=== PATIENT | male | born 1950 | race Hispanic/Latino ===

== ENCOUNTER → 2017-05-14 | Outpatient (CLI) | payer MEDICARE ==
[~2017-05-14] MED LIST: CHOL500050 PO; FURO40SO PO; HUM10VIA SQ; IRON1CAP3 PO; LACT PO; LACT10SO9 PO; MONT10TA24 PO; PANT40TA25 PO; PROP20TA7 PO; PROP40TA7 PO; RIFA500P3 MC; RIFA550T PO; ROPI2TAB29 PO; VIT-7 PO; ZINC220T PO
[2017-05-14 13:33] LABS: INR 1.51 (0.85-1.15); PARTIAL THROMBOPLASTIN TIME 33.6 SEC (26.3-35.5); PROTHROMBIN TIME 15.7 SEC (9.6-11.6)
== END | disposition home or self-care (01) ==
LOC: RAH 12:10
PROVIDERS: ATTEND Internal Medicine Hematology & Oncology
DX: R18.8 Other ascites (principal); Z79.01 Long term (current) use of anticoagulants
CPT/HCPCS: 36415; 49083; 85610; 85730

== ENCOUNTER → 2017-05-28 | Outpatient (CLI) | payer MEDICARE | END | disposition home or self-care (01) | LOC: RAH 07:54 | PROVIDERS: ATTEND Internal Medicine Gastroenterology | DX: K74.60 Unspecified cirrhosis of liver (principal); K57.90 Diverticulosis of intestine, part unspecified, without perforation or abscess without bleeding; R18.8 Other ascites; R16.1 Splenomegaly, not elsewhere classified; R93.3 Abnormal findings on diagnostic imaging of other parts of digestive tract | CPT/HCPCS: 74176 ==

== ENCOUNTER → 2017-05-31 | Outpatient (CLI) | payer MEDICARE ==
[2017-05-31 08:54] LABS: INR 1.48 (0.85-1.15); PARTIAL THROMBOPLASTIN TIME 36.5 SEC (26.3-35.5); PROTHROMBIN TIME 15.4 SEC (9.6-11.6)
[2017-05-31 20:41] LABS: APPEARANCE BODY FLUID CLEAR (CLEAR); COLOR,BODY FLUID LT YELLOW (LT YELLOW); SPECIMENTYPE,BODY FLUID ASCITES; TOTAL VOLUME,BODY FLUID 4000 mL
[2017-05-31 20:51] LABS: BODY FLUID WBC 109 /cu. mm.
[2017-05-31 20:52] LABS: BODY FLUID RBC 1225 /cu. mm.
[2017-05-31 21:08] LABS: BF LYMPHOCYTE 29 %; BF MESOTHELIAL 16 %; BF MONOCYTE 29 %
== END | disposition home or self-care (01) ==
LOC: RAH 07:56
PROVIDERS: ATTEND Internal Medicine Hematology & Oncology
DX: R18.8 Other ascites (principal); Z79.01 Long term (current) use of anticoagulants
CPT/HCPCS: 36415; 49083; 85610; 85730; 87071; 87205; 88108; 89051

== ENCOUNTER 2017-06-10 05:12 | Inpatient (IN) | payer MEDICARE ==
[~2017-06-10] VITALS: Ht 165.1 cm; Wt 97.5 kg
[2017-06-10] VITALS: BP 116/60
[2017-06-10] MEDS ORDERED: CEFTRIAXONE SODIUM 2 GM VIAL ONE (05:29)
[2017-06-10] MEDS ORDERED: SODIUM CHLORIDE 0.9% 1000ML 0 ML IV ONE (05:29)
[2017-06-10] MEDS ORDERED: LACTULOSE 20 GM/30 ML UDCUP ONE (05:29)
[2017-06-10] MEDS ORDERED: ALBUMIN (HUMAN) 25% 100 ML IV ONE (05:30)
[2017-06-10 05:38] LABS: BASOPHILS % (AUTO) 0.4 % (0.0-5.0); EOSINOPHILS % (AUTO) 3.4 % (0.0-8.0); HEMATOCRIT 31.7 % (42-54); LYMPHOCYTES % (AUTO) 12.8 % (21.0-51.0); MEAN CORPUSCULAR HEMOGLOBIN 34.7 pg (27.0-33.0); MEAN CORPUSCULAR HGB CONC 35.1 g/dL (32.0-36.0); MEAN CORPUSCULAR VOLUME 98.9 fL (79-99); MONOCYTES % (AUTO) 11.3 % (3.0-13.0); NEUTROPHILS % (AUTO) 72.1 % (40.0-77.0); PLATELET COUNT (AUTO) 71 K/uL (130-400); RED CELL DISTRIBUTION WIDTH 16.8 % (11.0-15.5); WHITE BLOOD COUNT (AUTO) 6.9 K/uL (4.8-10.8)
[2017-06-10] MEDS ORDERED: SODIUM CHLORIDE 0.9% 1000ML 1,000 ML IV ONE (05:49)
[2017-06-10 05:50] LABS: INR 1.46 (0.85-1.15); PARTIAL THROMBOPLASTIN TIME 34.5 SEC (26.3-35.5); PROTHROMBIN TIME 15.2 SEC (9.6-11.6)
[2017-06-10 05:54] LABS: BILIRUBIN,TOTAL 5.5 mg/dL (0.2-1.0); CREATININE 3.6 mg/dL (0.5-1.5); TOTAL PROTEIN, SERUM 6.6 g/dL (6.0-8.3)
[2017-06-10 05:55] LABS: CREATINE KINASE, TOTAL 88 U/L (21-232); LIPASE 880 U/L (114-286)
[2017-06-10 06:02] LABS: POTASSIUM 2.4 mmol/L (3.5-5.1)
[2017-06-10] MEDS ORDERED: MAGNESIUM 2GM PREMIX 50ML 50 ML IV ONE (06:06)
[2017-06-10] MEDS ORDERED: POTASSIUM CHLORIDE 20MEQ/100ML 0 ML IV ONE (06:09)
[2017-06-10] MEDS ORDERED: POTASSIUM CHLORIDE 20MEQ/100ML 100 ML IV ONE ×2 (06:25→08:19)
[2017-06-10 06:32] LABS: APPEARANCE,URINE Clear (CLEAR); BILIRUBIN,URINE Negative (NEGATIVE); COLOR,URINE Yellow (YELLOW); GLUCOSE, URINE (UA) >=1000 mg/dL (NEGATIVE); KETONES,URINE Negative (NEGATIVE); LEUKOCYTE ESTERASE ,URINE Negative (NEGATIVE); NITRATE,URINE Negative (NEGATIVE); OCCULT BLOOD,URINE Negative (NEGATIVE); PH,URINE 5.5 (5.0-8.0); PROTEIN,URINE Negative (NEGATIVE)
[2017-06-10 07:02] LABS: BACTERIA,URINE Rare /HPF (None Seen); RBC,URINE 0-1 /HPF (0-1); SQUAMOUS EPITHELIAL CELL,UR Few /LPF (0-2); WBC,URINE 0-1 /HPF (0-1)
[2017-06-10 10:00] VITALS: BP 138/73
[2017-06-10] MEDS: POTASSIUM CHLORIDE 20 MEQ ERTAB PO SCH (10:36)
[2017-06-10] MEDS: LEVOFLOXACIN 500 MG TABLET PO SCH (10:37)
[2017-06-10 12:13] VITALS: BP 115/53
[2017-06-10] MEDS ORDERED: GLUCAGON 1MG KIT 1 MG ML IM PRN (13:00)
[2017-06-10] MEDS ORDERED: DEXTROSE 50%-WATER 50 ML DISP.SYRIN IV PRN (13:00)
[2017-06-10] MEDS: LACTULOSE 20 GM/30 ML UDCUP PO SCH ×2 (13:22→22:31)
[2017-06-10] MEDS: INSULIN HUMULIN R 100 UNIT/ML 3ML SQ SCH ×3 (13:22→21:50)
[2017-06-10 16:00] VITALS: BP 129/62
[2017-06-10] MEDS ORDERED: RIFA500P3 MC (18:52)
[2017-06-10] MEDS ORDERED: IRON1CAP3 PO (18:53)
[2017-06-10] MEDS ORDERED: FURO40SO PO (18:59)
[2017-06-10] MEDS ORDERED: PANT40TA25 PO (18:59)
[2017-06-10] MEDS ORDERED: MONT10TA24 PO (18:59)
[2017-06-10] MEDS ORDERED: VIT-7 PO (18:59)
[2017-06-10] MEDS ORDERED: PROP40TA7 PO (18:59)
[2017-06-10 20:00] VITALS: BP 126/72
[2017-06-11] VITALS (7 sets, daily range): BP systolic 111–139; BP diastolic 58–86
[2017-06-11 04:48] LABS: MEAN CORPUSCULAR HGB CONC 36.8 g/dL (32.0-36.0); MEAN CORPUSCULAR VOLUME 97.7 fL (79-99); PLATELET COUNT (AUTO) 57 K/uL (130-400); RED BLOOD CELL COUNT(AUTO) 2.66 MIL/uL (4.50-6.20); WHITE BLOOD COUNT (AUTO) 6.6 K/uL (4.8-10.8)
[2017-06-11 04:56] LABS: CREATININE 3.2 mg/dL (0.5-1.5)
[2017-06-11 05:03] LABS: POTASSIUM 2.5 mmol/L (3.5-5.1)
[2017-06-11 05:07] LABS: BAND NEUTROPHILS % (MANUAL) 2 % (0-2); BASOPHILS % (MANUAL) 1 % (0-2); EOSINOPHILS % (MANUAL) 6 % (1-6); LYMPHOCYTES % (MANUAL) 6 % (22-44); MAN.DIFF COMMENT-IMPRESSION MANUAL DIFFERENTIAL; MONOCYTES % (MANUAL) 1 % (2-9); SEGMENTED NEUTROPHILS % 84 % (40-70)
[2017-06-11 05:08] LABS: PLATELET MORPHOLOGY COMMENT MARKED DECREASED
[2017-06-11] MEDS: LACTULOSE 20 GM/30 ML UDCUP PO SCH ×3 (05:24→21:06)
[2017-06-11] MEDS: INSULIN HUMULIN R 100 UNIT/ML 3ML SQ SCH ×4 (07:27→21:52)
[2017-06-11] MEDS ORDERED: POTASSIUM CHLORIDE 20 MEQ ERTAB PO SCH (09:45)
[2017-06-11] MEDS: POTASSIUM CHLORIDE 20 MEQ ERTAB PO SCH (09:58)
[2017-06-11] MEDS: IRON POLYSACCHARIDES COMPLEX 150 MG CAPSULE PO SCH (09:59)
[2017-06-11] MEDS: LEVOFLOXACIN 500 MG TABLET PO SCH (09:59)
[2017-06-11] MEDS: RIFAXIMIN 550 MG TABLET PO SCH ×2 (10:05→21:06)
[2017-06-11] MEDS: FUROSEMIDE 40 MG TABLET PO SCH (21:07)
[2017-06-11] MEDS: PROPRANOLOL HCL 20 MG TAB PO SCH (21:07)
[2017-06-11] MEDS: MONTELUKAST SODIUM 10 MG TAB PO SCH (21:07)
[2017-06-12] VITALS (12 sets, daily range): BP systolic 103–145; BP diastolic 44–74
[2017-06-12 04:14] LABS: CREATININE 3.3 mg/dL (0.5-1.5); INR 1.66 (0.85-1.15); PARTIAL THROMBOPLASTIN TIME 39.4 SEC (26.3-35.5); POTASSIUM 3.2 mmol/L (3.5-5.1); PROTHROMBIN TIME 17.3 SEC (9.6-11.6)
[2017-06-12] MEDS: LACTULOSE 20 GM/30 ML UDCUP PO SCH ×3 (06:28→20:52)
[2017-06-12] MEDS: INSULIN HUMULIN R 100 UNIT/ML 3ML SQ SCH ×4 (06:50→22:36)
[2017-06-12] MEDS ORDERED: POTASSIUM CHLORIDE 20 MEQ ERTAB PO SCH (08:45)
[2017-06-12] MEDS: PANTOPRAZOLE SODIUM 40 MG TABLET.DR PO SCH (10:05)
[2017-06-12] MEDS: PROPRANOLOL HCL 20 MG TAB PO SCH ×2 (10:05→20:52)
[2017-06-12] MEDS: RIFAXIMIN 550 MG TABLET PO SCH ×2 (10:06→20:52)
[2017-06-12] MEDS: IRON POLYSACCHARIDES COMPLEX 150 MG CAPSULE PO SCH (10:06)
[2017-06-12] MEDS: LEVOFLOXACIN 500 MG TABLET PO SCH (10:06)
[2017-06-12] MEDS: FUROSEMIDE 40 MG TABLET PO SCH ×2 (10:06→20:52)
[2017-06-12] MEDS: MONTELUKAST SODIUM 10 MG TAB PO SCH (20:52)
[2017-06-13 03:00] VITALS: BP 112/59
[2017-06-13 04:08] LABS: CREATININE 3.1 mg/dL (0.5-1.5); PHOSPHORUS 1.6 mg/dL (2.5-4.9); POTASSIUM 3.5 mmol/L (3.5-5.1)
[2017-06-13 04:10] LABS: HEMATOCRIT 26.1 % (42-54); MEAN CORPUSCULAR HEMOGLOBIN 36.3 pg (27.0-33.0); MEAN CORPUSCULAR HGB CONC 36.6 g/dL (32.0-36.0); MEAN CORPUSCULAR VOLUME 99.3 fL (79-99); NUCLEATED RED BLOOD CELLS 0.1 % (0.0-0.19); PLATELET COUNT (AUTO) 53 K/uL (130-400); RED BLOOD CELL COUNT(AUTO) 2.63 MIL/uL (4.50-6.20); RED CELL DISTRIBUTION WIDTH 17.2 % (11.0-15.5); WHITE BLOOD COUNT (AUTO) 6.2 K/uL (4.8-10.8)
[2017-06-13 04:34] LABS: BAND NEUTROPHILS % (MANUAL) 8 % (0-2); BASOPHILS % (MANUAL) 2 % (0-2); EOSINOPHILS % (MANUAL) 2 % (1-6); LYMPHOCYTES % (MANUAL) 9 % (22-44); MAN.DIFF COMMENT-IMPRESSION MANUAL DIFFERENTIAL; MONOCYTES % (MANUAL) 7 % (2-9); PLATELET MORPHOLOGY COMMENT MARKED DEC; SEGMENTED NEUTROPHILS % 72 % (40-70)
[2017-06-13] MEDS: INSULIN HUMULIN R 100 UNIT/ML 3ML SQ SCH (06:28)
[2017-06-13] MEDS: LACTULOSE 20 GM/30 ML UDCUP PO SCH (06:36)
[2017-06-13] MEDS: IRON POLYSACCHARIDES COMPLEX 150 MG CAPSULE PO SCH (07:43)
[2017-06-13] MEDS: RIFAXIMIN 550 MG TABLET PO SCH (07:44)
[2017-06-13] MEDS: FUROSEMIDE 40 MG TABLET PO SCH (07:44)
[2017-06-13] MEDS: PANTOPRAZOLE SODIUM 40 MG TABLET.DR PO SCH (07:44)
[2017-06-13] MEDS: PROPRANOLOL HCL 20 MG TAB PO SCH (07:44)
[2017-06-13] MEDS: LEVOFLOXACIN 500 MG TABLET PO SCH (07:44)
[2017-06-13 08:00] VITALS: BP 115/54
[2017-06-13] MEDS ORDERED: LACT PO (09:04)
[2017-10-08] MEDS ORDERED: CHOL500050 PO (10:53)
[2017-10-08] MEDS ORDERED: PROP20TA7 PO (10:55)
== END 2017-06-13 10:30 | disposition home or self-care (01) | DRG 442 ==
LOC: EDH 05:12 → EDHIP 08:20 → 3CH 09:31
PROVIDERS: ADMIT Internal Medicine Nephrology; ATTEND Internal Medicine Nephrology
PROC: 0W9G3ZZ Drainage of Peritoneal Cavity, Percutaneous Approach (ICD-10-PCS; principal; 2017-06-12)
DX: K72.90 Hepatic failure, unspecified without coma (principal); N17.9 Acute kidney failure, unspecified; E44.1 Mild protein-calorie malnutrition; E11.22 Type 2 diabetes mellitus with diabetic chronic kidney disease; N18.4 Chronic kidney disease, stage 4 (severe); I12.9 Hypertensive chronic kidney disease with stage 1 through stage 4 chronic kidney disease, or unspecified chronic kidney disease; E78.00 Pure hypercholesterolemia, unspecified; Z91.19 Patient's noncompliance with other medical treatment and regimen; Z88.8 Allergy status to other drugs, medicaments and biological substances; Z82.49 Family history of ischemic heart disease and other diseases of the circulatory system
CPT/HCPCS: 36415; 49083; 71045; 80048; 80053; 81001; 82140; 82550; 82948; 83605; 83690; 84100; 84484; 85025; 85610; 85730; 87040; 87804; 93005; 99291; J0696; J1815; J3475; J3480; J7030; P9046

== ENCOUNTER 2017-06-15 14:44 | Observation (INO) | payer MEDICARE ==
[~2017-06-15] VITALS: Ht 165.1 cm; Wt 96.4 kg
[~2017-06-15 14:44] MED LIST changes: -CHOL500050 PO; -HUM10VIA SQ; -LACT10SO9 PO; -PROP20TA7 PO; -RIFA550T PO; -ROPI2TAB29 PO; -ZINC220T PO
[2017-06-15 15:36] LABS: BASOPHILS % (AUTO) 0.3 % (0.0-5.0); EOSINOPHILS % (AUTO) 2.5 % (0.0-8.0); HEMATOCRIT 28.3 % (42-54); LYMPHOCYTES % (AUTO) 8.4 % (21.0-51.0); MEAN CORPUSCULAR HEMOGLOBIN 35.9 pg (27.0-33.0); MEAN CORPUSCULAR HGB CONC 35.2 g/dL (32.0-36.0); MEAN CORPUSCULAR VOLUME 101.9 fL (79-99); MONOCYTES % (AUTO) 9.3 % (3.0-13.0); NEUTROPHILS % (AUTO) 79.5 % (40.0-77.0); NUCLEATED RED BLOOD CELLS 0.1 % (0.0-0.19); PLATELET COUNT (AUTO) 57 K/uL (130-400); RED BLOOD CELL COUNT(AUTO) 2.78 MIL/uL (4.50-6.20); RED CELL DISTRIBUTION WIDTH 17.6 % (11.0-15.5); WHITE BLOOD COUNT (AUTO) 7.9 K/uL (4.8-10.8)
[2017-06-15] MEDS ORDERED: INSULIN HUMULIN R 100 UNIT/ML 3ML ONE ×2 (15:48→21:03)
[2017-06-15 15:55] LABS: INR 1.56 (0.85-1.15); PARTIAL THROMBOPLASTIN TIME 38.7 SEC (26.3-35.5); PROTHROMBIN TIME 16.2 SEC (9.6-11.6)
[2017-06-15 16:11] LABS: BILIRUBIN,TOTAL 4.6 mg/dL (0.2-1.0); CREATINE KINASE MB 0.8 ng/mL (0.5-3.6); CREATININE 3.4 mg/dL (0.5-1.5); POTASSIUM 3.6 mmol/L (3.5-5.1); TOTAL PROTEIN, SERUM 6.3 g/dL (6.0-8.3)
[2017-06-15 22:12] LABS: APPEARANCE,URINE Clear (CLEAR); BILIRUBIN,URINE Negative (NEGATIVE); COLOR,URINE Dark Yellow (YELLOW); GLUCOSE, URINE (UA) >=1000 mg/dL (NEGATIVE); KETONES,URINE Negative (NEGATIVE); LEUKOCYTE ESTERASE ,URINE Negative (NEGATIVE); NITRATE,URINE Negative (NEGATIVE); OCCULT BLOOD,URINE Negative (NEGATIVE); PH,URINE 5.5 (5.0-8.0); PROTEIN,URINE Negative (NEGATIVE); UROBILINOGEN,URINE 0.2 mg/dL (0.2-1.0)
[2017-06-15 22:59] LABS: BACTERIA,URINE Few /HPF (None Seen); CALCIUM OXALATE CRYSTALS,UR Moderate /LPF (None Seen); RBC,URINE 0-1 /HPF (0-1); SQUAMOUS EPITHELIAL CELL,UR Few /LPF (0-2); YEAST,URINE BUDDING Moderate /HPF (None Seen)
[2017-06-15 23:15] VITALS: BP 113/67
[2017-06-15] MEDS ORDERED: DEXTROSE 50%-WATER 50 ML DISP.SYRIN IV PRN (23:30)
[2017-06-15] MEDS ORDERED: GLUCAGON 1MG KIT 1 MG ML IM PRN (23:30)
[2017-06-16 03:00] VITALS: BP 98/57
[2017-06-16] MEDS ORDERED: INSULIN HUMULIN R 100 UNIT/ML 3ML ONE (05:58)
[2017-06-16] MEDS: LACTULOSE 20 GM/30 ML UDCUP PO SCH ×3 (05:59→20:27)
[2017-06-16 06:15] LABS: HEMATOCRIT 24.4 % (42-54); MEAN CORPUSCULAR HEMOGLOBIN 34.7 pg (27.0-33.0); MEAN CORPUSCULAR HGB CONC 34.9 g/dL (32.0-36.0); MEAN CORPUSCULAR VOLUME 99.6 fL (79-99); PLATELET COUNT (AUTO) 48 K/uL (130-400); RED BLOOD CELL COUNT(AUTO) 2.45 MIL/uL (4.50-6.20); RED CELL DISTRIBUTION WIDTH 16.8 % (11.0-15.5); WHITE BLOOD COUNT (AUTO) 6.2 K/uL (4.8-10.8)
[2017-06-16 06:20] LABS: CREATININE 3.3 mg/dL (0.5-1.5); POTASSIUM 3.2 mmol/L (3.5-5.1)
[2017-06-16] MEDS: INSULIN R PO SS1 SQ SCH ×4 (06:30→21:52)
[2017-06-16 07:00] VITALS: BP 99/58
[2017-06-16] MEDS: PROPRANOLOL HCL 20 MG TAB PO SCH ×3 (09:00→20:28)
[2017-06-16] MEDS: FOLIC ACID/VITAMIN B COMP W-C 1 MG CAPSULE PO SCH (09:17)
[2017-06-16] MEDS: FUROSEMIDE 40 MG TABLET PO SCH ×2 (09:17→20:27)
[2017-06-16] MEDS: RIFAXIMIN 550 MG TABLET PO SCH ×2 (09:17→20:27)
[2017-06-16] MEDS: PANTOPRAZOLE SODIUM 40 MG TABLET.DR PO SCH (09:17)
[2017-06-16] MEDS: FERROUS SULFATE 325 MG TABLET.DR PO SCH (09:17)
[2017-06-16] MEDS ORDERED: EPOETIN ALFA 10,000 UNIT/ML VIAL SQ SCH (10:45)
[2017-06-16 11:00] VITALS: BP 100/56
[2017-06-16] MEDS: POTASSIUM CHLORIDE 20 MEQ ERTAB PO SCH (11:30)
[2017-06-16] MEDS ORDERED: COMPOUND IV MISC 1 EACH IVSOLN MISC PRN (11:45)
[2017-06-16] MEDS: MIDODRINE HCL 5 MG TABLET PO SCH ×2 (13:46→20:27)
[2017-06-16 15:00] VITALS: BP 102/47
[2017-06-16] MEDS ORDERED: MONTELUKAST SODIUM 10 MG TAB PO SCH (21:00)
[2017-06-16] MEDS: INSULIN HUMULIN 70/30 100 UNIT/ML 3ML SQ SCH (21:00)
[2017-06-16 21:07] VITALS: BP 128/65
[2017-06-17 00:23] VITALS: BP 113/63
[2017-06-17 04:51] VITALS: BP 124/72
[2017-06-17] MEDS: LACTULOSE 20 GM/30 ML UDCUP PO SCH (06:00)
[2017-06-17 06:24] LABS: HEMATOCRIT 27.1 % (42-54); MEAN CORPUSCULAR HEMOGLOBIN 36.4 pg (27.0-33.0); MEAN CORPUSCULAR HGB CONC 36.2 g/dL (32.0-36.0); MEAN CORPUSCULAR VOLUME 100.4 fL (79-99); PLATELET COUNT (AUTO) 65 K/uL (130-400); RED CELL DISTRIBUTION WIDTH 17.2 % (11.0-15.5); WHITE BLOOD COUNT (AUTO) 7.7 K/uL (4.8-10.8)
[2017-06-17 06:30] LABS: CREATININE 3.5 mg/dL (0.5-1.5); POTASSIUM 3.3 mmol/L (3.5-5.1)
[2017-06-17] MEDS: INSULIN R PO SS1 SQ SCH ×2 (06:38→11:23)
[2017-06-17 07:49] LABS: BAND NEUTROPHILS % (MANUAL) 1 % (0-2); BASOPHILS % (MANUAL) 1 % (0-2); EOSINOPHILS % (MANUAL) 3 % (1-6); LYMPHOCYTES % (MANUAL) 8 % (22-44); MONOCYTES % (MANUAL) 2 % (2-9); SEGMENTED NEUTROPHILS % 85 % (40-70)
[2017-06-17 07:53] LABS: MAN.DIFF COMMENT-IMPRESSION MANUAL DIFFERENTIAL; PLATELET MORPHOLOGY COMMENT DECREASED
[2017-06-17 08:18] VITALS: BP 119/56
[2017-06-17] MEDS: FERROUS SULFATE 325 MG TABLET.DR PO SCH (08:43)
[2017-06-17] MEDS: PANTOPRAZOLE SODIUM 40 MG TABLET.DR PO SCH (08:44)
[2017-06-17] MEDS: FOLIC ACID/VITAMIN B COMP W-C 1 MG CAPSULE PO SCH (08:44)
[2017-06-17] MEDS: FUROSEMIDE 40 MG TABLET PO SCH (08:44)
[2017-06-17] MEDS: RIFAXIMIN 550 MG TABLET PO SCH (08:44)
[2017-06-17] MEDS: MIDODRINE HCL 5 MG TABLET PO SCH (08:44)
[2017-06-17] MEDS: PROPRANOLOL HCL 20 MG TAB PO SCH (08:44)
[2017-06-17] MEDS: INSULIN HUMULIN 70/30 100 UNIT/ML 3ML SQ SCH (09:00)
[2017-06-17] MEDS ORDERED: IRON SUCROSE COMPLEX 100 MG in SODIUM CHLORIDE 0.9% 50 ML IV SCH (09:00)
[2017-06-17] MEDS ORDERED: HUM10VIA SQ (09:56)
[2017-06-17] MEDS ORDERED: POTASSIUM CHLORIDE 20 MEQ ERTAB PO SCH (10:00)
[2017-06-17] MEDS: POTASSIUM CHLORIDE 20 MEQ ERTAB PO SCH (11:15)
[2017-06-17 11:18] VITALS: BP 119/58
[2017-10-08] MEDS ORDERED: CHOL500050 PO (10:53)
[2017-10-08] MEDS ORDERED: PROP20TA7 PO (10:55)
== END 2017-06-17 12:00 | disposition home or self-care (01) ==
LOC: EDH 14:44 → EDHIP 19:58 → 4AH 22:58
PROVIDERS: ADMIT Internal Medicine Nephrology; ATTEND Internal Medicine Nephrology
DX: E11.65 Type 2 diabetes mellitus with hyperglycemia (principal); R53.81 Other malaise; E78.00 Pure hypercholesterolemia, unspecified; E87.8 Other disorders of electrolyte and fluid balance, not elsewhere classified; I10 Essential (primary) hypertension; N19 Unspecified kidney failure; K74.60 Unspecified cirrhosis of liver; G93.40 Encephalopathy, unspecified; D64.9 Anemia, unspecified; Z88.8 Allergy status to other drugs, medicaments and biological substances; Z82.49 Family history of ischemic heart disease and other diseases of the circulatory system
CPT/HCPCS: 36415 ×3; 80048 ×2; 80053; 81001; 82009; 82140; 82550; 82553; 82948 ×9; 84484; 85025 ×2; 85027; 85610; 85730; 93005; 96365; 96372 ×2; 99285; G0378 ×40; J0885; J1756; J1815 ×7; 96361; 96368; 96375; 96376

== ENCOUNTER → 2017-07-02 | Outpatient (CLI) | payer MEDICARE ==
[~2017-07-02] MED LIST changes: +ALBUMIN (HUMAN) 25% 200 ML IV ONE; +CHOL500050 PO; +HUM10VIA SQ; +LACT10SO9 PO; +PROP20TA7 PO; +RIFA550T PO; +ROPI2TAB29 PO; +ZINC220T PO
[2017-07-02 10:41] LABS: BASOPHILS % (AUTO) 0.4 % (0.0-5.0); EOSINOPHILS % (AUTO) 4.3 % (0.0-8.0); HEMATOCRIT 28.8 % (42-54); LYMPHOCYTES % (AUTO) 17.9 % (21.0-51.0); MEAN CORPUSCULAR HEMOGLOBIN 36.2 pg (27.0-33.0); MEAN CORPUSCULAR HGB CONC 35.7 g/dL (32.0-36.0); MEAN CORPUSCULAR VOLUME 101.4 fL (79-99); NEUTROPHILS % (AUTO) 65.4 % (40.0-77.0); PLATELET COUNT (AUTO) 77 K/uL (130-400); RED BLOOD CELL COUNT(AUTO) 2.84 MIL/uL (4.50-6.20); WHITE BLOOD COUNT (AUTO) 4.6 K/uL (4.8-10.8)
[2017-07-02 10:52] LABS: ALBUMIN 2.1 g/dL (3.5-5.0); BILIRUBIN,TOTAL 4.3 mg/dL (0.2-1.0); CREATININE 3.4 mg/dL (0.5-1.5); POTASSIUM 3.3 mmol/L (3.5-5.1); TOTAL PROTEIN, SERUM 6.7 g/dL (6.0-8.3)
[2017-07-02 10:56] LABS: INR 1.49 (0.85-1.15); PROTHROMBIN TIME 15.5 SEC (9.6-11.6)
[2017-07-02 14:33] LABS: APPEARANCE BODY FLUID SLIGHTLY CLOUDY (CLEAR); COLOR,BODY FLUID YELLOW (LT YELLOW); SPECIMENTYPE,BODY FLUID ASCITES; TOTAL VOLUME,BODY FLUID 4500 mL
[2017-07-02 14:34] LABS: BODY FLUID WBC 39 /cu. mm.
[2017-07-02 14:35] LABS: BODY FLUID RBC 1275 /cu. mm.
[2017-07-02 14:39] LABS: BF LYMPHOCYTE 33 %; BF MESOTHELIAL 29 %
== END | disposition home or self-care (01) ==
LOC: RAH 10:01
PROVIDERS: ATTEND Internal Medicine Gastroenterology
DX: R18.8 Other ascites (principal); J90 Pleural effusion, not elsewhere classified; K74.60 Unspecified cirrhosis of liver
CPT/HCPCS: 36415; 49083; 71046; 80053; 82105; 82140; 85025; 85610; 87071; 87205; 88108; 88305; 89051; P9046

== ENCOUNTER → 2017-07-08 | Outpatient (CLI) | payer MEDICARE ==
[~2017-07-08] MED LIST changes: -ALBUMIN (HUMAN) 25% 200 ML IV ONE
[2017-07-08 08:49] LABS: BASOPHILS % (AUTO) 1.3 % (0.0-5.0); EOSINOPHILS % (AUTO) 4.9 % (0.0-8.0); HEMATOCRIT 27.3 % (42-54); LYMPHOCYTES % (AUTO) 20.9 % (21.0-51.0); MEAN CORPUSCULAR HEMOGLOBIN 35.5 pg (27.0-33.0); MEAN CORPUSCULAR HGB CONC 35.3 g/dL (32.0-36.0); MEAN CORPUSCULAR VOLUME 100.6 fL (79-99); MONOCYTES % (AUTO) 15.9 % (3.0-13.0); NUCLEATED RED BLOOD CELLS 0.2 % (0.0-0.19); PLATELET COUNT (AUTO) 58 K/uL (130-400); RED BLOOD CELL COUNT(AUTO) 2.71 MIL/uL (4.50-6.20); RED CELL DISTRIBUTION WIDTH 18.2 % (11.0-15.5); WHITE BLOOD COUNT (AUTO) 4.5 K/uL (4.8-10.8)
[2017-07-08 09:02] LABS: INR 1.58 (0.85-1.15); PROTHROMBIN TIME 16.4 SEC (9.6-11.6)
[2017-07-08 09:04] LABS: ALBUMIN 2.4 g/dL (3.5-5.0); CREATININE 3.2 mg/dL (0.5-1.5); POTASSIUM 4.2 mmol/L (3.5-5.1); TOTAL PROTEIN, SERUM 6.4 g/dL (6.0-8.3)
[2017-07-08 11:17] LABS: APPEARANCE BODY FLUID CLEAR (CLEAR); COLOR,BODY FLUID YELLOW (LT YELLOW); SPECIMENTYPE,BODY FLUID ASCITES
[2017-07-08 11:18] LABS: BODY FLUID RBC 1319 /cu. mm.; BODY FLUID WBC 105 /cu. mm.
[2017-07-08 11:26] LABS: TOTAL VOLUME,BODY FLUID 1800 mL
[2017-07-08 11:31] LABS: BF LYMPHOCYTE 44 %; BF MESOTHELIAL 37 %; BF MONOCYTE 10 %; BF OTHER CELLS 2
== END | disposition home or self-care (01) ==
LOC: RAH 07:17
PROVIDERS: ATTEND Internal Medicine Gastroenterology
DX: R18.8 Other ascites (principal)
CPT/HCPCS: 36415; 49083; 80053; 85025; 85610; 87071; 87205; 88108; 88305; 89051

== ENCOUNTER → 2017-07-09 | Outpatient (CLI) | payer MEDICARE | END | disposition home or self-care (01) | LOC: RAH 07:38 | PROVIDERS: ATTEND Internal Medicine Gastroenterology | DX: K80.20 Calculus of gallbladder without cholecystitis without obstruction (principal); R18.8 Other ascites; I12.9 Hypertensive chronic kidney disease with stage 1 through stage 4 chronic kidney disease, or unspecified chronic kidney disease; E11.22 Type 2 diabetes mellitus with diabetic chronic kidney disease; N18.4 Chronic kidney disease, stage 4 (severe); E78.00 Pure hypercholesterolemia, unspecified | CPT/HCPCS: 76700; 93975 ==

== ENCOUNTER → 2017-07-29 | Outpatient (CLI) | payer MEDICARE ==
[~2017-07-29] MED LIST changes: +ALBUMIN (HUMAN) 25% 200 ML IV SCH; +LIDOCAINE HCL 1% 20 ML VIAL ONE
[2017-07-29 16:00] LABS: SPECIMENTYPE,BODY FLUID ASCITES
[2017-07-29 16:01] LABS: APPEARANCE BODY FLUID SLIGHTLY CLOUDY (CLEAR); COLOR,BODY FLUID LT YELLOW (LT YELLOW); TOTAL VOLUME,BODY FLUID 3000 mL
[2017-07-29 16:20] LABS: BODY FLUID RBC 1550 /cu. mm.; BODY FLUID WBC 65 /cu. mm.
[2017-07-29 16:34] LABS: BF LYMPHOCYTE 50 %; BF MONOCYTE 30 %; BF OTHER CELLS 2
== END | disposition home or self-care (01) ==
LOC: RAH 10:04
PROVIDERS: ATTEND Internal Medicine Gastroenterology
DX: R18.8 Other ascites (principal)
CPT/HCPCS: 49083; 87071; 87205; 88108; 89051; P9046

== ENCOUNTER 2017-08-21 00:11 | Inpatient (IN) | payer MEDICARE ==
[~2017-08-21] VITALS: Ht 165.1 cm; Wt 87.4 kg
[~2017-08-21 00:11] MED LIST changes: -ALBUMIN (HUMAN) 25% 200 ML IV SCH; -CHOL500050 PO; -LACT10SO9 PO; -LIDOCAINE HCL 1% 20 ML VIAL ONE; -PROP20TA7 PO; -RIFA550T PO; -ROPI2TAB29 PO; -ZINC220T PO
[2017-08-21 00:33] LABS: BASOPHILS % (AUTO) 0.6 % (0.0-5.0); EOSINOPHILS % (AUTO) 2.7 % (0.0-8.0); LYMPHOCYTES % (AUTO) 18.1 % (21.0-51.0); MEAN CORPUSCULAR HEMOGLOBIN 34.4 pg (27.0-33.0); MEAN CORPUSCULAR HGB CONC 34.6 g/dL (32.0-36.0); MEAN CORPUSCULAR VOLUME 99.4 fL (79-99); MONOCYTES % (AUTO) 12.5 % (3.0-13.0); NEUTROPHILS % (AUTO) 66.1 % (40.0-77.0); NUCLEATED RED BLOOD CELLS 0.1 % (0.0-0.19); PLATELET COUNT (AUTO) 48 K/uL (130-400); RED BLOOD CELL COUNT(AUTO) 2.62 MIL/uL (4.50-6.20); WHITE BLOOD COUNT (AUTO) 5.6 K/uL (4.8-10.8)
[2017-08-21 00:40] LABS: CREATININE 2.6 mg/dL (0.5-1.5)
[2017-08-21 00:45] LABS: ALBUMIN 2.7 g/dL (3.5-5.0); BILIRUBIN,TOTAL 5.2 mg/dL (0.2-1.0); TOTAL PROTEIN, SERUM 6.5 g/dL (6.0-8.3)
[2017-08-21 01:10] LABS: INR 1.42 (0.85-1.15); PARTIAL THROMBOPLASTIN TIME 36.6 SEC (26.3-35.5); PROTHROMBIN TIME 14.8 SEC (9.6-11.6)
[2017-08-21] MEDS ORDERED: LACTULOSE 20 GM/30 ML UDCUP ONE (01:12)
[2017-08-21] MEDS ORDERED: GLUCAGON 1MG KIT 1 MG ML IM PRN (03:45)
[2017-08-21] MEDS ORDERED: DEXTROSE 50%-WATER 50 ML DISP.SYRIN IV PRN (03:45)
[2017-08-21 04:00] VITALS: BP 170/76
[2017-08-21 05:36] LABS: HEMATOCRIT 24.7 % (42-54); MEAN CORPUSCULAR HEMOGLOBIN 35.2 pg (27.0-33.0); MEAN CORPUSCULAR HGB CONC 35.7 g/dL (32.0-36.0); MEAN CORPUSCULAR VOLUME 98.6 fL (79-99); PLATELET COUNT (AUTO) 44 K/uL (130-400); WHITE BLOOD COUNT (AUTO) 5.1 K/uL (4.8-10.8)
[2017-08-21 05:52] LABS: ALBUMIN 2.4 g/dL (3.5-5.0); BILIRUBIN,TOTAL 4.8 mg/dL (0.2-1.0); CREATININE 2.5 mg/dL (0.5-1.5); POTASSIUM 3.9 mmol/L (3.5-5.1); TOTAL PROTEIN, SERUM 5.9 g/dL (6.0-8.3)
[2017-08-21] MEDS ORDERED: LACTULOSE 20 GM/30 ML UDCUP PO SCH (06:00)
[2017-08-21] MEDS: SODIUM CHLORIDE 0.9% 1000ML 1,000 ML IV SCH (06:41)
[2017-08-21] MEDS ORDERED: LACT10SO9 PO (06:59)
[2017-08-21 08:00] VITALS: BP 142/79
[2017-08-21] MEDS ORDERED: ROPI2TAB29 PO (08:10)
[2017-08-21] MEDS ORDERED: RIFA550T PO (08:12)
[2017-08-21] MEDS ORDERED: ZINC220T PO (08:12)
[2017-08-21] MEDS: FAMOTIDINE 20MG TAB 20 MG TAB PO SCH (09:33)
[2017-08-21] MEDS: LACTULOSE 20 GM/30 ML UDCUP PO SCH ×4 (09:33→22:14)
[2017-08-21 11:56] VITALS: BP 150/85
[2017-08-21 16:00] VITALS: BP 180/76
[2017-08-21 19:00] VITALS: BP 161/73
[2017-08-21] MEDS: FUROSEMIDE 40 MG TABLET PO SCH (21:00)
[2017-08-21] MEDS: INSULIN HUMULIN 70/30 100 UNIT/ML 3ML SQ SCH (21:00)
[2017-08-21] MEDS: ZINC SULFATE 220 MG PO SCH (21:00)
[2017-08-21] MEDS ORDERED: RIFAXIMIN 200 MG TABLET PO SCH (21:00)
[2017-08-21] MEDS: MONTELUKAST SODIUM 10 MG TAB PO SCH (22:13)
[2017-08-21] MEDS: ROPINIROLE HCL 1 MG TABLET PO SCH (22:13)
[2017-08-22] VITALS: BP 149/72
[2017-08-22 04:00] VITALS: BP 129/56
[2017-08-22] MEDS: LACTULOSE 20 GM/30 ML UDCUP PO SCH ×6 (04:20→21:22)
[2017-08-22] MEDS: FERREX PO SCH (09:00)
[2017-08-22 09:18] VITALS: BP 140/82
[2017-08-22] MEDS: INSULIN HUMULIN 70/30 100 UNIT/ML 3ML SQ SCH ×2 (09:51→21:33)
[2017-08-22] MEDS: RIFAXIMIN 550 MG TABLET PO SCH ×2 (09:51→21:23)
[2017-08-22] MEDS: PANTOPRAZOLE SODIUM 40 MG TABLET.DR PO SCH (09:52)
[2017-08-22] MEDS: FAMOTIDINE 20MG TAB 20 MG TAB PO SCH (09:52)
[2017-08-22] MEDS: FUROSEMIDE 40 MG TABLET PO SCH ×2 (09:52→21:23)
[2017-08-22] MEDS: SODIUM CHLORIDE 0.9% 1000ML 1,000 ML IV SCH ×2 (09:58→20:00)
[2017-08-22 11:35] VITALS: BP 148/83
[2017-08-22 15:56] VITALS: BP 152/78
[2017-08-22] MEDS: INSULIN HUMULIN R 100 UNIT/ML 3ML SQ SCH ×2 (17:22→21:00)
[2017-08-22 19:39] VITALS: BP 157/89
[2017-08-22] MEDS: ZINC SULFATE 220 MG PO SCH (21:00)
[2017-08-22] MEDS: MONTELUKAST SODIUM 10 MG TAB PO SCH (21:23)
[2017-08-22] MEDS: ROPINIROLE HCL 1 MG TABLET PO SCH (21:23)
[2017-08-23] VITALS: BP 140/89
[2017-08-23] MEDS: LACTULOSE 20 GM/30 ML UDCUP PO SCH ×4 (00:45→12:00)
[2017-08-23 04:36] VITALS: BP 146/79
[2017-08-23 07:30] VITALS: BP 156/76
[2017-08-23] MEDS: INSULIN HUMULIN R 100 UNIT/ML 3ML SQ SCH ×2 (07:30→11:30)
[2017-08-23] MEDS: INSULIN HUMULIN 70/30 100 UNIT/ML 3ML SQ SCH (09:00)
[2017-08-23] MEDS: FERREX PO SCH (09:00)
[2017-08-23] MEDS ORDERED: LACT10SO9 PO (09:47)
[2017-08-23] MEDS: PANTOPRAZOLE SODIUM 40 MG TABLET.DR PO SCH (09:50)
[2017-08-23] MEDS: FAMOTIDINE 20MG TAB 20 MG TAB PO SCH (09:50)
[2017-08-23] MEDS: RIFAXIMIN 550 MG TABLET PO SCH (09:50)
[2017-08-23] MEDS: FUROSEMIDE 40 MG TABLET PO SCH (09:50)
[2017-08-23 11:00] VITALS: BP 152/87
[2017-10-08] MEDS ORDERED: CHOL500050 PO (10:53)
[2017-10-08] MEDS ORDERED: PROP20TA7 PO (10:55)
== END 2017-08-23 12:10 | disposition home or self-care (01) | DRG 442 ==
LOC: EDH 00:11 → EDHIP 02:56 → OBSVTOIN 02:56 → 3DH 03:28
PROVIDERS: ADMIT Internal Medicine Nephrology; ATTEND Internal Medicine Nephrology
DX: K72.90 Hepatic failure, unspecified without coma (principal); R18.8 Other ascites; D69.6 Thrombocytopenia, unspecified; D63.8 Anemia in other chronic diseases classified elsewhere; E11.9 Type 2 diabetes mellitus without complications; I10 Essential (primary) hypertension; I44.0 Atrioventricular block, first degree; K74.60 Unspecified cirrhosis of liver; M19.90 Unspecified osteoarthritis, unspecified site; Z79.4 Long term (current) use of insulin; Z80.3 Family history of malignant neoplasm of breast; Z80.8 Family history of malignant neoplasm of other organs or systems; Z88.6 Allergy status to analgesic agent
CPT/HCPCS: 36415; 70450; 74176; 80053; 82140; 82550; 82948; 84484; 85025; 85027; 85610; 85730; 93005; 99291; J1815; J7030

== ENCOUNTER → 2017-09-05 | Outpatient (CLI) | payer MEDICARE ==
[~2017-09-05] MED LIST changes: +CHOL500050 PO; +FURO40TA5 PO; -LACT PO; +LACT10SO9 PO; +PROP20TA7 PO; -RIFA500P3 MC; +RIFA550T PO; +ROPI2TAB29 PO; -VIT-7 PO; +ZINC220T PO
[2017-09-05 08:49] LABS: INR 1.61 (0.85-1.15); PARTIAL THROMBOPLASTIN TIME 46.5 SEC (26.3-35.5); PROTHROMBIN TIME 16.7 SEC (9.6-11.6)
[2017-09-05 08:50] LABS: TOTAL PROTEIN, SERUM 6.6 g/dL (6.0-8.3)
[2017-09-05 10:16] LABS: APPEARANCE BODY FLUID CLOUDY (CLEAR); BODY FLUID WBC 317 /cu. mm.; COLOR,BODY FLUID ORANGE (LT YELLOW); SPECIMENTYPE,BODY FLUID PLEURAL; TOTAL VOLUME,BODY FLUID 1500 mL
[2017-09-05 10:17] LABS: BODY FLUID RBC 16819 /cu. mm.
[2017-09-05 10:23] LABS: BF LYMPHOCYTE 27 %; BF MESOTHELIAL 69 %; BF MONOCYTE 2 %
== END | disposition home or self-care (01) ==
LOC: RAH 07:15
PROVIDERS: ATTEND Internal Medicine
DX: J90 Pleural effusion, not elsewhere classified (principal)
CPT/HCPCS: 32555; 36415; 71045; 82945; 83615; 83986; 84155; 84157; 85610; 85730; 87071; 87103; 87116; 87205; 87206; 88108; 88305; 89051

== ENCOUNTER → 2017-09-25 | Outpatient (CLI) | payer MEDICARE ==
[~2017-09-25] MED LIST changes: +ALBUMIN (HUMAN) 25% 200 ML IV SCH; +LIDOCAINE HCL 1% 10 ML VIAL ONE
[2017-09-25 10:25] LABS: INR 1.42 (0.85-1.15); PROTHROMBIN TIME 14.8 SEC (9.6-11.6)
[2017-09-25 10:30] LABS: ALBUMIN 2.8 g/dL (3.5-5.0); BILIRUBIN,TOTAL 4.4 mg/dL (0.2-1.0); CREATININE 2.7 mg/dL (0.5-1.5); POTASSIUM 4.4 mmol/L (3.5-5.1); TOTAL PROTEIN, SERUM 6.4 g/dL (6.0-8.3)
== END | disposition home or self-care (01) ==
LOC: RAH 09:53
PROVIDERS: ATTEND Internal Medicine Gastroenterology
DX: R18.8 Other ascites (principal); Z53.9 Procedure and treatment not carried out, unspecified reason
CPT/HCPCS: 36415; 76705; 80053; 85610; J3490; P9046

== ENCOUNTER 2017-10-08 09:58 | Day surgery (SDC) | payer MEDICARE ==
[~2017-10-08] VITALS: Ht 165.1 cm; Wt 94.1 kg
[~2017-10-08 09:58] MED LIST changes: -ALBUMIN (HUMAN) 25% 200 ML IV SCH; -CHOL500050 PO; -FURO40TA5 PO; -LIDOCAINE HCL 1% 10 ML VIAL ONE; -PROP20TA7 PO; -PROP40TA7 PO; +SODIUM CHLORIDE 0.9% 1000ML 1,000 ML IV ONE
[2017-10-08 10:23] VITALS: BP 168/71
[2017-10-08] MEDS ORDERED: CHOL500050 PO ×2 (10:53)
[2017-10-08] MEDS ORDERED: PROP20TA7 PO ×2 (10:55)
[2017-10-08 11:55] VITALS: BP 141/67
[2017-10-18] MEDS ORDERED: PROP40TA7 PO (17:52)
[2017-10-18] MEDS ORDERED: RIFA550T PO (17:52)
[2017-10-18] MEDS ORDERED: FURO40TA5 PO (17:52)
== END 2017-10-08 12:43 | disposition home or self-care (01) ==
LOC: DAH 09:58
PROVIDERS: ATTEND Internal Medicine Gastroenterology
DX: I85.00 Esophageal varices without bleeding (principal); K76.6 Portal hypertension; K31.89 Other diseases of stomach and duodenum; R00.1 Bradycardia, unspecified; Z79.899 Other long term (current) drug therapy; E11.9 Type 2 diabetes mellitus without complications; E78.5 Hyperlipidemia, unspecified; I10 Essential (primary) hypertension; Z68.32 Body mass index [BMI] 32.0-32.9, adult
CPT/HCPCS: 43244; 93005; A4606; J7030

== ENCOUNTER → 2017-10-09 | Outpatient (CLI) | payer MEDICARE ==
[~2017-10-09] MED LIST changes: +ALBUMIN (HUMAN) 25% 200 ML IV SCH; +CHOL500050 PO; +FURO40TA5 PO; +LIDOCAINE HCL 1% 20 ML VIAL ONE; +PROP20TA7 PO; +PROP40TA7 PO; -SODIUM CHLORIDE 0.9% 1000ML 1,000 ML IV ONE
[2017-10-09 13:27] LABS: APPEARANCE BODY FLUID CLEAR (CLEAR); BODY FLUID WBC 128 /cu. mm.; COLOR,BODY FLUID YELLOW (LT YELLOW); SPECIMENTYPE,BODY FLUID ASCITES
[2017-10-09 13:28] LABS: BODY FLUID RBC 873 /cu. mm.
[2017-10-09 13:30] LABS: BF LYMPHOCYTE 14 %; BF MESOTHELIAL 81 %
[2017-10-09 13:34] LABS: TOTAL VOLUME,BODY FLUID 2600 mL
== END | disposition home or self-care (01) ==
LOC: RAH 09:56
PROVIDERS: ATTEND Internal Medicine Gastroenterology
DX: R18.8 Other ascites (principal)
CPT/HCPCS: 49083; 87071; 87205; 88108; 89051; P9046